=== PATIENT | male | born 1970 ===

== ENCOUNTER 2022-05-22 09:04 | Day surgery (SDC) | payer OTHER ==
[2022-05-22] MEDS ORDERED: LACTATED RINGERS 1,000 ML IV SCH (10:10)
[2022-05-22 10:17] VITALS: RESP 16; TEMP 97.7
[2022-05-22] MEDS ORDERED: LIDOCAINE 2% INJ 20 MG/ML (2 ML VIAL) ONE (10:29)
[2022-05-22] MEDS ORDERED: PROPOFOL 10 MG/ML 20 ML VIAL IV ONE (10:29)
--- NOTE | 2022-05-22 10:33 | P.GSHP ---
History of Present Illness H&P Date: 05/22/22 Chief Complaint: Screening colonoscopy This a 51-year-old male who presents today for screening colonoscopy. Patient denies a significant GI complaints. Medications and Allergies Home Medications Medication Instructions Recorded Confirmed Type Dextroamphetamine/Amphetamine 10 mg PO DAILY 05/22/22 05/22/22 History [Adderall Xr 10 mg Capsule] Allergies Allergy/AdvReac Type Severity Reaction Status Date / Time No Known Allergies Allergy Verified 05/22/22 10:08 Surgical - Exam Vital Signs Temp Pulse Resp BP Pulse Ox 97.7 F 81 16 145/85 97 05/22/22 10:07 05/22/22 10:07 05/22/22 10:07 05/22/22 10:07 05/22/22 10:07 - General well developed, well nourished, no distress - Eyes PERRL - ENT normal pinna - Neck no masses - Respiratory normal expansion - Cardiovascular Rhythm: regular - Abdomen Abdomen: soft, non tender Assessment and Plan Plan: We'll perform screening colonoscopy
[2022-05-22 10:59] VITALS: PULSE 82
--- NOTE | 2022-05-22 10:59 | P.OP ---
Date of Procedure: 05/22/22 Preoperative Diagnosis: Screening colonoscopy Postoperative Diagnosis: : Normal colon Procedure(s) Performed: Screening colonoscopy Anesthesia: MANDO Surgeon: Flakito Layne Pathology: none sent Condition: stable Disposition: PACU Description of Procedure: PROCEDURE: The patient was placed on the endoscopy table in the lateral position. Digital rectal examination was performed which revealed no abnormalities. The prostate was symmetrical without nodules. Flexible colonoscope was then placed in the patient's anus and passed throughout the entire colon. The ileocecal valve was visualized. The cecum, ascending, transverse, descending and sigmoid colon were normal. The rectum was normal as well. There were no masses, polyps or diverticula noted in the entire colon. SUMMARY OF FINDINGS: Normal colonoscopy.
[2022-05-22 11:10] VITALS: BP 173/88
== END 2022-05-22 11:24 | disposition home or self-care (01) ==
LOC: ORWHC2ENDO 09:04
PROVIDERS: ATTEND Surgery
DX: Z12.11 Encounter for screening for malignant neoplasm of colon (principal); F90.9 Attention-deficit hyperactivity disorder, unspecified type; Z79.899 Other long term (current) drug therapy
CPT/HCPCS: 45378; J2704; J2001